=== PATIENT | male | born 1930 | race Caucasian/White ===

== ENCOUNTER 2018-03-29 06:09 | Inpatient (IN) | payer OTHER ==
--- NOTE | 2018-03-29 06:53 | ED.PDOC ---
General Stated Complaint: Patient states that he has noticed left leg swelling more that usual with redness and tingling that started last night. Feels like prior cellulitis. He was concerned so came to the ER. Already taking warfarin for intermitent Atrial fibrillation and CAD with prior stents. Time Seen by Physician: 06:51 Information Source: Patient, Family Exam Limitations: No limitations Nursing and Triage Documentation Reviewed and Agree: Yes Does patient meet sepsis criteria?: Yes If yes, has appropriate treatment been initiated?: Yes System Inflammatory Response Syndrome: Pulse >90 BPM, Resp >20/Minute <ARLEY MARROQUIN - Last Filed: 03/29/18 07:01> <OSMIN RABAGO - Last Filed: 03/29/18 07:40> ED Provider: Dr. OSMIN LOCKE-OLGA Chief Complaint: Extremity Swelling/Pain Primary Care Provider: SARIKA CANO Sepsis Protocol: For patient's 13 years and over: Temp is 96.8 and below OR 101 and greater Pulse >90 BPM Resp >20/minute Acutely Altered Mental Status Are patient's symptoms suggestive of a new infection, such as: -Pneumonia -Skin, Soft Tissue -Endocarditis -UTI -Bone, Joint Infection -Implantable Device -Acute Abdominal Infection -Wound Infection -Meningitis -Blood Stream Catheter Infection -Unknown Musculoskeletal Complaint Exam - Lower Extremity Complaint/Exam Location of Pain: Reports: Left Mechanism of Injury: Reports: No known trauma Symptoms Are: Still present Onset of Pain: Reports: Days (1) Initial Severity: Mild Current Severity: Mild Location: Reports: Diffuse Able to Bear Weight: Yes Associated Signs and Symptoms: Reports: Swelling Septic Arthritis Risk Factors: Reports: None Lower Extremity Findings: Present: Swelling, Erythema, Warmth, Tenderness (to palpation) Lyla's Sign Present: No Lower Extremities Picture: 1 - erythema and edema Differential Diagnoses: Other (cellulitis ) <ARLEY MARROQUIN - Last Filed: 03/29/18 07:01> Review of Systems - Review Of Systems Constitutional: Reports: No symptoms Eyes: Reports: No symptoms Ears, Nose, Mouth, Throat: Reports: No symptoms Respiratory: Reports: No symptoms Cardiac: Reports: No symptoms GI: Reports: No symptoms : Reports: No symptoms Musculoskeletal: Reports: Joint swelling Skin: Reports: Rash (Redness on the left ) Neurological: Reports: No symptoms Endocrine: Reports: No symptoms Hematologic/Lymphatic: Reports: No symptoms All Other Systems: Reviewed and Negative <ARLEY MARROQUIN - Last Filed: 03/29/18 07:01> Past Medical History - Past Medical History Previously Healthy: Yes Endocrine: Reports: Hypothyroid, Dyslipidemia Cardiovascular: Reports: AK, A-Fib (intermitent ) Respiratory: Reports: None Hematological: Reports: None Gastrointestinal: Reports: None Genitourinary: Reports: None Neuro/Psych: Reports: Parkinson's Musculoskeletal: Reports: Arthritis, Other (chronic lower ext edema ) Cancer: Reports: None - Surgical History General Surgical History: Reports: Stent - Family History Family History: Reports: Unknown - Social History Smoking Status: Former smoker Hx Substance Use: No Alcohol Screening: None - Immunizations Tetanus Shot up to Date: No (unknown) <ARLEY MARROQUIN - Last Filed: 03/29/18 07:01> Physical Exam - Physical Exam Appearance: Well-appearing Pain Distress: None Eyes: MYCHAL, EOMI Neck: Supple Respiratory: Airway patent, Breath sounds clear, Breath sounds equal, Respirations nonlabored Cardiovascular: RRR, Pulses normal, No rub, No murmur GI/: Soft, Nontender, No masses, Bowel sounds normal, No Organomegaly Musculoskeletal: Normal strength, ROM intact, No calf tenderness, Edema (Left > right 3 + on left, 2+ on the right ) Skin: Warm, Dry (redness noted on the left with slight warmth. ) Neurological: Sensation intact, Alert, Oriented Psychiatric: Affect appropriate, Mood appropriate <ARLEY MARROQUIN - Last Filed: 03/29/18 07:01> Physician Notification - Case Discussed Endorsed To/Discussed With: Dr Locke Time of Discussion: 07:01 <ARLEY MARROQUIN Last Filed: 03/29/18 07:01> - Case Discussed Physician Notified: dr cano Time of Notification: 07:40 <OSMIN RABAGO - Last Filed: 03/29/18 07:40> Critical Care Note - Critical Care Note Total Time (mins): 0 <OSMIN ARBAGO - Last Filed: 03/29/18 07:40> Course - Course Hematology/Chemistry: 03/29/18 06:55 03/29/18 06:55 <OSMIN RABAGO - Last Filed: 03/29/18 07:40> - Course Orders, Labs, Meds: Lab Review 03/29/18 03/29/18 03/29/18 06:55 06:55 06:55 WBC 10.69 H RBC 4.45 L Hgb 14.2 Hct 40.9 L MCV 91.9 MCH 31.9 H MCHC 34.7 RDW Coeff of Chidi 12.0 Plt Count 160 Immature Gran % (Auto) 0.3 Neut % (Auto) 92.3 Lymph % (Auto) 4.6 L [place] % (Auto) 2.7 Eos % (Auto) 0.0 Baso % (Auto) 0.1 Immature Gran # (Auto) 0.0 Neut # (Auto) 9.9 H Lymph # (Auto) 0.5 L [place] # (Auto) 0.3 L Eos # (Auto) 0.0 Baso # (Auto) 0.0 PT 30.3 H INR 3.13 Sodium 135.8 L Potassium 3.86 Chloride 102.9 Carbon Dioxide 27.4 Anion Gap 9.36 BUN 21.1 H Creatinine 0.84 Estimated GFR (MDRD) 86.00 BUN/Creatinine Ratio 25.11 Glucose 132.2 H Lactic Acid Calcium 8.73 Total Bilirubin 1.51 H AST 27.8 ALT 7.4 Alkaline Phosphatase 73.8 Total Protein 6.61 Albumin 3.40 L Globulin 3.21 Albumin/Globulin Ratio 1.05 03/29/18 06:55 WBC RBC Hgb Hct MCV MCH MCHC RDW Coeff of Chidi Plt Count Immature Gran % (Auto) Neut % (Auto) Lymph % (Auto) [place] % (Auto) Eos % (Auto) Baso % (Auto) Immature Gran # (Auto) Neut # (Auto) Lymph # (Auto) [place] # (Auto) Eos # (Auto) Baso # (Auto) PT INR Sodium Potassium Chloride Carbon Dioxide Anion Gap BUN Creatinine Estimated GFR (MDRD) BUN/Creatinine Ratio Glucose Lactic Acid 1.73 Calcium Total Bilirubin AST ALT Alkaline Phosphatase Total Protein Albumin Globulin Albumin/Globulin Ratio Orders Category Date Time Status ED IV/MEDIPORT/POWERPORT .ONCE EMERGENCY 03/29/18 06:50 Active BLOOD CULTURE (ED ONLY) Stat LAB 03/29/18 06:55 Received CBC W/ AUTO DIFF Stat LAB 03/29/18 06:55 Completed COMPREHENSIVE METABOLIC PANEL Stat LAB 03/29/18 06:55 Completed LACTIC ACID Stat LAB 03/29/18 06:55 Completed PROCALCITONIN Stat LAB 03/29/18 06:55 Received PT WITH INR Stat LAB 03/29/18 06:55 Completed 0.9 % Sodium Chloride [Saline Flush] MEDS 03/29/18 06:50 Active 1 syr IVF PRN PRN Medications Generic Name Dose Route Start Last Admin Trade Name Freq PRN Reason Stop Dose Admin Sodium Chloride 1 syr 03/29/18 06:50 Saline Flush IVF PRN PRN To flush IV Vital Signs: Temp Pulse Resp BP Pulse Ox 03/29/18 06:11 99.6 F 92 H 24 100/63 91 L Departure <ARLEY MARROQUIN - Last Filed: 03/29/18 07:01> - Departure Time of Disposition: 07:40 Pt referred to PMD for follow-up: Yes IPMP verified?: No Disposition Discussed With: Patient, Family <OSMIN RABAGO - Last Filed: 03/29/18 07:40> - Departure Disposition: ADMITTED INPATIENT Discharge Problem: Cellulitis of left lower extremity Instructions: Cellulitis (ED) Condition: Good Allergies/Adverse Reactions: Allergies No Known Allergies Allergy (Unverified 03/29/18 06:37) Home Medications: Ambulatory Orders Carbidopa/Levodopa [Carbidopa-Levodopa 25-100 Tab] 3 tab PO BID 03/29/18 Furosemide [Lasix] 40 mg PO DAILY 03/29/18 Levothyroxine Sodium [Synthroid] 100 mcg PO QDAC 03/29/18 Metoprolol Tartrate 25 mg PO BID 03/29/18 Simvastatin 10 mg PO DAILY 03/29/18 Vit C/E/Zn/Coppr/Lutein/Zeaxan [Preservision Areds 2 Softgel] 1 cap PO BID 03/29 Warfarin Sodium 2 mg PO WEEKLY 03/29/18 Warfarin Sodium 5 mg PO DIRECTED 03/29/18
[2018-03-29] MEDS ORDERED: ANCEF ONE (08:11)
[2018-03-29] MEDS: ANCEF 1 GM in SODIUM CHLORIDE 100 ML IV SCH ×3 (08:16→20:07)
[2018-03-29] MEDS: SODIUM CHLORIDE 1,000 ML IV SCH (08:17)
[2018-03-29 10:05] VITALS: BMI 27.5
[2018-03-29] MEDS ORDERED: NITROSTAT SL PRN (10:06)
[2018-03-29] MEDS ORDERED: VISTARIL INJ IM PRN (10:06)
[2018-03-29] MEDS ORDERED: TYLENOL PO PRN (10:06)
[2018-03-29] MEDS ORDERED: ATROPINE SULFATE PFS IVP PRN (10:06)
[2018-03-29] MEDS ORDERED: MORPHINE 4 MG/ML VIAL IVP PRN (10:06)
--- NOTE | 2018-03-29 11:32 | DI ---
Exam: Single view chest x-ray. Date: 03/29/2018. Comparison: None. HISTORY: Lower extremity swelling and atrial fibrillation. FINDINGS: No acute osseous abnormalities are observed. The lungs are clear. Cardiac silhouette and pulmonary vasculature are normal. ASVD is present. Impression: No acute intrathoracic findings. ASVD.
[2018-03-29] MEDS: DIFLUCAN PO SCH (12:15)
[2018-03-29] MEDS: LOTRISONE 45 GM TP SCH ×3 (12:16→20:08)
[2018-03-29] MEDS: LASIX TAB PO SCH (12:17)
[2018-03-29] MEDS: LOPRESSOR PO SCH ×2 (12:18→20:07)
[2018-03-29] MEDS: SINEMET 25-100 PO SCH ×2 (12:18→20:07)
[2018-03-29] MEDS: ZOCOR PO SCH (12:19)
[2018-03-29] MEDS: VANCOMYCIN 1 GM in SODIUM CHLORIDE 250 ML IV SCH ×2 (12:21→21:14)
[2018-03-29] MEDS ORDERED: NYSTATIN ORAL SUSP PO STA (15:51)
[2018-03-29] MEDS ORDERED: COUMADIN PO SCH (17:00)
[2018-03-30] MEDS: SYNTHROID PO SCH (05:32)
[2018-03-30] MEDS: ANCEF 1 GM in SODIUM CHLORIDE 100 ML IV SCH ×3 (05:32→21:01)
[2018-03-30] MEDS: LASIX TAB PO SCH (05:33)
--- NOTE | 2018-03-30 09:18 | PCM.PROG ---
Attending Provider: ATTENDING PROVIDER: Dr. SARIKA ANN This patient is seen with Kathi Reardon, Nurse Practitioner. DATE OF SERVICE: 03/30/18 SUBJECTIVE: This 87 year old WHITE/ M was hospitalized 03/29/18. The patient has significant leg erythema and swelling of both lower extremities. No fever and is eating well. REVIEW OF SYSTEMS: CONSTITUTIONAL: No night sweats. No fatigue, malaise, lethargy. No fever or chills. HEENT: Eyes: No visual changes. No eye pain. No eye discharge. ENT: No runny nose. No epistaxis. No sinus pain. No odynophagia. No congestion. RESPIRATORY: No cough, no congestion. No hemoptysis. No shortness of breath. CARDIOVASCULAR: Leg edema left lower extremity with redness. No angina symptoms. No CHF symptoms. No atypical chest pain for CAD. No palpitations. No orthopnea.. GASTROINTESTINAL: No abdominal pain. No nausea or vomiting. No diarrhea or constipation. No hematemesis. No hematochezia. GENITOURINARY: No urgency. No frequency. No dysuria. No hematuria. No obstructive symptoms. No discharge. No pain. No significant abnormal bleeding. MUSCULOSKELETAL: No musculoskeletal pain; no joint swelling. NEUROLOGICAL: Awake, alert, oriented to time, place and person. No headache. No neck pain. No syncope. No seizures. No dizziness. PSYCHIATRIC: Not anxious. No depression. No suicidal thoughts. No homicidal thoughts. SKIN: No rash. No lesions. No wounds. ENDOCRINE: No unexplained weight loss. No weight gain. HEMATOLOGIC/LYMPHATIC: No anemia. No purpura. No petechiae. No prolonged or excessive bleeding. No palpable lymph nodes. PHYSICAL EXAMINATION: GENERAL: The patient is awake, alert and oriented, sitting in chair in no distress. VITAL SIGNS: Temperature 98.7 F, Pulse 74, Respiratory Rate 16, BP 112/66, Pulse Ox 97% HEENT: Head normocephalic, atraumatic. Eyes: Extraocular muscles are intact. Pupils are equal, round and reactive to light and accommodation. Ears: No lesions. Nose appeared normal. Throat: No exudate or erythema. NECK: Supple. No JVD, no carotid bruit. No lymphadenopathy or thyromegaly. LUNGS: Diminished breath sounds. Clear to auscultation. Percussion note normal. Chest symmetrical. HEART: Irregular heart rate. S1, S2, no S3. No murmurs. No cyanosis or clubbing. No ascites. Pulses: Dorsalis pedis and posterior tibial pulses +1 to +2 both sides. ABDOMEN: Soft. Non-tender. Bowel sounds active. No CVA tenderness. No mass felt. EXTREMITIES: +2 edema bilateral lower extremities red from toes to knee with tenderness no open areas. Full range of motion of all extremities, equal. NEUROLOGIC: No focal deficit. Cranial nerves II through XII are grossly intact. No headache, no double vision or headache. SKIN: Not dry. Intact. Turgor-normal. LYMPHATIC: No palpable lymph nodes/no lymphedema. MUSCULOSKELETAL: Normal joints with no swelling. Muscle tone is normal. LAB REVIEW: 03/30/18 04:20 03/30/18 04:20 03/30/18 04:20: Sodium 134.2 L, Potassium 4.08, Chloride 104.0, Carbon Dioxide 28.3, Anion Gap 5.98, BUN 18.0, Creatinine 0.81, Estimated GFR (MDRD) 90.00, BUN /Creatinine Ratio 22.22, Glucose 100.1, Calcium 8.15 L, Total Bilirubin 1.84 H, AST 19.7, ALT 5.3, Alkaline Phosphatase 58.8, Total Protein 6.09 L, Albumin 2.88 L, Globulin 3.21, Albumin/Globulin Ratio 0.89 03/30/18 04:20: PT 29.6 H, INR 3.06 03/30/18 04:20: WBC 9.22, RBC 4.06 L, Hgb 13.0 L, Hct 37.8 L, MCV 93.1, MCH 32.0 H, MCHC 34.4, RDW Coeff of Chidi 12.2, Plt Count 124 L, Immature Gran % (Auto ) 0.2, Neut % (Auto) 79.5, Lymph % (Auto) 14.1, [place] % (Auto) 5.7, Eos % (Auto) 0.4, Baso % (Auto) 0.1, Immature Gran # (Auto) 0.0, Neut # (Auto) 7.3 H, Lymph # (Auto) 1.3, [place] # (Auto) 0.5, Eos # (Auto) 0.0, Baso # (Auto) 0.0 03/29/18 12:15: Urine Color Dark, Urine Clarity Clear, Urine pH 6.5, Ur Specific [place] 1.020, Urine Protein Trace, Urine Glucose (UA) Negative, Urine Ketones Trace, Urine Blood Negative, Urine Nitrite Negative, Urine Bilirubin Negative, Urine Urobilinogen 0.2, Ur Leukocyte Esterase Negative, Ur Squamous Epith Cells Not present, Urine Mucus 3+ ASSESSMENT: . 1. Left lower extremity cellulitis 2. Chronic bilateral lower extremity edema 3. Atrial fibrillation on Coumadin PLAN: 1. Left lower extremity venous scan 2. Hold Coumadin 3. Elevate legs Plan and coordination of the patient's care discussed in the presence of Patent Chemist and nurse. CONDITION: Stable SCRIBED BY: NINA RIVERA Fireman Helper scribed while in presence of service performed by Dr. Ann/Kathi Reardon APRN on 03/30/18 ([id number])
[2018-03-30] MEDS: VANCOMYCIN 1 GM in SODIUM CHLORIDE 250 ML IV SCH ×2 (09:58→21:00)
[2018-03-30] MEDS: ZOCOR PO SCH (09:59)
[2018-03-30] MEDS: SINEMET 25-100 PO SCH ×2 (09:59→21:03)
[2018-03-30] MEDS: DIFLUCAN PO SCH (09:59)
[2018-03-30] MEDS: LOPRESSOR PO SCH ×2 (09:59→21:02)
[2018-03-30] MEDS: LOTRISONE 45 GM TP SCH ×3 (10:00→21:00)
--- NOTE | 2018-03-30 11:03 | US ---
EXAM: Left lower extremity venous Doppler History: Left lower extremity pain and swelling. Technique: Multiple sonographic images through the left lower extremity were obtained. Color duplex Doppler was used to interrogate vascular flow. Findings: The left common femoral, greater saphenous, profunda, superficial femoral, popliteal, cash roseline, posterior tibial and anterior tibial veins demonstrate spontaneous flow with normal compression normal augmentation. Impression: No sonographic evidence for deep venous thrombosis.
--- NOTE | 2018-03-30 15:40 | RS.OTINEVL ---
Subjective - Patient information Date of Evaluation: 03/30/18 Date of Arrival on Unit: 03/30/18 Admitted From:: Emergency Dept Usual Living Arrangement: With Spouse Living Arrangement Comments: Pt lives at [place] with his . Pt usually does not use an AD for ambulation, however patient could benefit from a RW to improve balance and safety. Medical History Comments:: Parkinson's, LLE cellulitis, sensory deficits, Irreg. HB, Coronary Stent 1985, 1987, OA, former smoker, B TKA, Cardiac stents, CAD, AFib Surgical History: Knee Replacement Surgical History Comments:: B TKA, 2 Cardiac stents, Subjective Information/ Patient Comments:: "I walk at home without anything." "My uses a walker." "It feels like pins are poking in it." - Level of function Prior to this admission, the patient could do the following:: Independent Selfcare, Independent ADL's, Independent Ambulation Abilities prior to this admission: Pt would sit on a shower chair for his shower. Current Equipment Used at Home: cane Pain Assessment - Pain Pain Score: 0 Interventions - Objective Patient Orientation: Person, Place Current Interventions: IV's, Telemetry Observation: Pt has edema, redness, and heat in the LLE. Interventions - ROM Right Upper Extremity AROM: WFL's Left Upper Extremity AROM: WFL's - Strength Right Upper Extremity Strength: Mild Weakness Left Upper Extremity Strength: Mild Weakness - Sensation Right Upper Extremity Sensation: Intact/Normal Left Upper Extremity Sensation: Intact/Normal Balance - Sitting Balance Static Sitting Balance: Good Dynamic Sitting Balance: Fair - Standing Balance Static Standing Balance: Poor Dynamic Standing Balance: Poor ADL Skills - Self Feeding Self Feeding: Independent - Grooming Grooming: Supervision - Bathing Bathing UE: Supervision Bathing LE: Supervision - Dressing Dressing UE: Supervision Dressing LE: Min Assist - Toilet Management Toileting Management: Supervision Functional Mobility - Bed Mobility Rolling R/L: Independent Scooting: Supervision Supine to Sit: Supervision Sit to Supine: Supervision - Transfers Sit to Stand: CGA Stand to Sit: [facility] Stand Pivot Transfers: CGA - Ambulation Weight Bearing Status: FWB Assistive Device Used: Rolling Walker Assistance needed with Ambulation: CGA, 1 person assist - Safety Awareness Safety Awareness: Good MANJU INDEX SCORE: . Additional Treatment Performed - Time with patient Length of Evaluation: 24 Total treatment time: 24 Activities Patient Interests:: Watching Television, Visiting/Socializing Patient Education Patient Education: Education of diagnosis, Home Exercise Program Teaching Recipient: Patient Teaching Methods: Discussion Assessment Problem List:: Decreased level of function, Requires training/education, Decreased safety/Risk of falls, Weakness Rehab Potential: Good Further Therapy Indicated?: Yes Evaluation Complexity: HISTORY: Medium, EXAM OF BODY SYSTEMS: Medium, CLINICAL DECISION MAKING: Medium Short Term Goals - Goals GOAL 1: Pt to increase activity tolerance to 15 minutes with 1 rest. Goal to be met by: 04/02/18 GOAL 2: Pt to increase independence of BLE dressing to CGA. Goal to be met by: 04/02/18 GOAL 3: Pt to increase independence of sink level ADLs to CGA. Goal to be met by: 04/02/18 Jail Goals GOAL 1: Pt to increase activity tolerance to 20 minutes with 1 rest. Goal to be met by: 04/06/18 GOAL 2: Pt to increase independence of BLE dressing to CGA. Goal to be met by: 04/06/18 GOAL 3: Pt to increase independence of sink level ADLs to Mod-I. Goal to be met by: 04/06/18 Plan Plan of Care: Therapeutic EX, Neuromuscular Re-Educ, Therapeutic Activity, Self- Care/Home Management Modalities: Cold Pack/Cryotherapy Frequency of Treatment: 1-2 X day, as tolerated Anticipated Discharge Destination: Assisted Living Facility Treatment Diagnosis (ICD 10 Codes): M62.81 Muscle Weakness, Z74.0 Reduced mobility, Z74.1 Reduced need for assistance with personal care. Has the Physician been added for Co-signature?: Yes
[2018-03-30] MEDS: SODIUM CHLORIDE 1,000 ML IV SCH (19:48)
[2018-03-31] MEDS: ANCEF 1 GM in SODIUM CHLORIDE 100 ML IV SCH ×3 (05:39→20:50)
[2018-03-31] MEDS: LASIX TAB PO SCH (05:39)
[2018-03-31] MEDS: SYNTHROID PO SCH (06:23)
--- NOTE | 2018-03-31 08:35 | RS.PTINEVL ---
Subjective - Patient information Date of Evaluation: 03/30/18 Date of Arrival on Unit: 03/30/18 Admitted From:: Emergency Dept Diagnosis: cellulitis LLE Usual Living Arrangement: With Spouse Living Arrangement Comments: Pt lives at [place] with his . pt amb independently without AD and independent with ADL's Home Environment: Apartment, Level/No stairs Medical History: Arthritis Medical History Comments:: parkinson's disease, CT, Afib, hypothyroidism Surgical History: Knee Replacement Surgical History Comments:: B TKA Medications: see chart Subjective Information/ Patient Comments:: pt states that he walks on his own at [place]. - Level of function Prior to this admission, the patient could do the following:: Independent Selfcare, Independent ADL's, Independent Ambulation Current Level of Function: Partially Dependent Current Equipment Used at Home: cane Interventions - Objective Patient Orientation: Person, Place Current Interventions: IV's, Telemetry Observation: pt with 2+ pitting edema and erythema LLE due to cellulitis Range of Motion - ROM Right Upper Extremity AROM: WFL's Left Upper Extremity AROM: WFL's Right Lower Extremity AROM: WFL's Left Lower Extremity AROM: WFL's Muscle Strength - Muscle Strength Right Upper Extremity Strength: Mild Weakness (grossly 4-/5) Left Upper Extremity Strength: Mild Weakness (grossly 4-/5) Right Lower Extremity Strength: Mild Weakness (hip flex 3+/5, knee flex/ext 4-/5 , ankle Df/PF 4-/5) Left Lower Extremity Strength: Mild Weakness (hip flex 3+/5, knee flex/ext 4-/5 , ankle Df/PF 4-/5) Sensation - Sensation Right Upper Extremity Sensation: Intact/Normal Left Upper Extremity Sensation: Intact/Normal Right Lower Extremity Sensation: Intact/Normal Left Lower Extremity Sensation: Intact/Normal Palpation Palpation Findings: None/Normal Balance - Sitting Balance and Reactions Static Sitting Balance: Fair Dynamic Sitting Balance: Fair Sitting Equilibrium Reactions: Delayed Left, Delayed Right Sitting Protective Reactions: Delayed Left, Delayed Right - Standing Balance and Reactions Static Standing Balance: Poor Dynamic Standing Balance: Poor Standing Equilibrium Reactions: Delayed Left, Delayed Right Standing Protective Reactions: Delayed Left, Delayed Right Functional Mobility - Bed Mobility Rolling R/L: CGA Scooting: CGA Supine to Sit: Min Assist Sit to Supine: Min Assist - Transfers Sit to Stand: CGA Stand to Sit: CGA - Safety Awareness Safety Awareness: Fair MANJU INDEX SCORE: n/a Ambulation - Ambulation Assistive Device Used: Rolling Walker Orthotic/Prosthetic Device: No Distance: 100ft Assistance needed with Ambulation: CGA, 1 person assist Gait Deviations: Narrow Based gait, Forward posture, Short stride, Deviates from path Ambulation Comments: pt amb with decreased ASHLEY with occasional scissoring, flexed posture, decreased step length Factors Affecting Ambulation: Decreased Balance, Breathing/O2 Saturation, Weakness, Decreased Safety, Limited Endurance Treatment time - Time with patient Length of Evaluation: 23 Total treatment time: 26 Patient Education - Education Patient Education: Activity Modification, Education of Plan of Care Teaching Recipient: Patient Teaching Methods: Discussion Comments: discussion regarding POC as well as use of rwx at the proper height ( pt was using 's rwx that was too short for him) Assessment - Assessment Problem List:: Decreased level of function, Requires training/education, Decreased safety/Risk of falls, Weakness Rehab Potential: Good Further Therapy Indicated?: Yes Candidate for Swing Bed for Therapy Services?: pt may be a candidate for swing bed therapy due to PLOF and plan to return to independent living facility. Evaluation Complexity: HISTORY: Medium (afib, CAD, parkinson's, OA), EXAM OF BODY SYSTEMS: Medium (posture, strength, balance, gait ), CLINICAL PRESENTATION : Medium, CLINICAL DECISION MAKING: Medium Short Term Goals GOAL #1: pt demonstrate independence with rolling and scooting up in bed. Goal to be met by: 04/01/18 GOAL #2: pt transfer sup to/from sit to/from stand CGA Goal to be met by: 04/01/18 GOAL #3: pt amb 125ft with rwx with improved ASHLEY, step length, CGA Goal to be met by: 04/01/18 GOAL #4: Improved strength BLE 4- to 4/5 Goal to be met by: 04/01/18 Snf Goals GOAL #1: pt transfer sup to/from sit to/from stand SBA to Independently Goal to be met by: 04/04/18 GOAL #2: pt amb with rwx functional household distances with SBA with no LOB Goal to be met by: 04/04/18 GOAL #3: pt with improved dyn stand balance to good- Goal to be met by: 04/04/18 Plan Plan of Care: Therapeutic EX, Therapeutic Activity Other:: gait training Frequency of Treatment: 1-2 X day, as tolerated Duration of Treatment: 5 days Anticipated Discharge Destination: Home Treatment Diagnosis (ICD 10 Codes): R26. 2 difficulty walking. M62.81 general weakness. R 26.81 balance impaired. parkinson's disease Has the Physician been added for Co-signature?: Yes
[2018-03-31] MEDS: LOPRESSOR PO SCH ×2 (09:16→20:50)
[2018-03-31] MEDS: FLOMAX PO SCH (09:16)
[2018-03-31] MEDS: ZOCOR PO SCH (09:17)
[2018-03-31] MEDS: SINEMET 25-100 PO SCH ×2 (09:17→20:51)
[2018-03-31] MEDS: DIFLUCAN PO SCH (09:17)
[2018-03-31] MEDS: LOTRISONE 45 GM TP SCH ×3 (09:17→20:50)
[2018-03-31] MEDS: VANCOMYCIN 1 GM in SODIUM CHLORIDE 250 ML IV SCH ×2 (09:17→22:18)
--- NOTE | 2018-03-31 10:37 | PCM.PROG ---
Attending Provider: ATTENDING PROVIDER: Dr. SARIKA ANN This patient is seen with Kathi Reardon, Nurse Practitioner. DATE OF SERVICE: 03/31/18 SUBJECTIVE: This 87 year old WHITE/ M was hospitalized 03/29/18. The patient is sitting in chair, resting. Redness slightly improved. He has been urinating frequently every 15 minutes small amounts, likely due to prostate enlargement and age. REVIEW OF SYSTEMS: CONSTITUTIONAL: No night sweats. No fatigue, malaise, lethargy. No fever or chills. HEENT: Eyes: No visual changes. No eye pain. No eye discharge. ENT: No runny nose. No epistaxis. No sinus pain. No odynophagia. No congestion. RESPIRATORY: No cough, no congestion. No hemoptysis. No shortness of breath. CARDIOVASCULAR: No angina symptoms. No CHF symptoms. No atypical chest pain for CAD. No palpitations. No PND, no orthopnea. GASTROINTESTINAL: No abdominal pain. No nausea or vomiting. No diarrhea or constipation. No hematemesis. No hematochezia. GENITOURINARY: Frequent urination. No dysuria. No hematuria. No obstructive symptoms. No discharge. No pain. No significant abnormal bleeding. MUSCULOSKELETAL: No musculoskeletal pain; no joint swelling. NEUROLOGICAL: Awake, alert, oriented to time, place and person. No headache. No neck pain. No syncope. No seizures. No dizziness. PSYCHIATRIC: Not anxious. No depression. No suicidal thoughts. No homicidal thoughts. SKIN: Positive for redness left lower extremity, bilateral leg edema. ENDOCRINE: No unexplained weight loss. No weight gain. HEMATOLOGIC/LYMPHATIC: No anemia. No purpura. No petechiae. No prolonged or excessive bleeding. No palpable lymph nodes. PHYSICAL EXAMINATION: GENERAL: The patient is awake, alert and oriented, sitting in chair in no distress. VITAL SIGNS: Temperature 98.7 F, Pulse 73, Respiratory Rate 20, BP 130/78, Pulse Ox 96% HEENT: Head normocephalic, atraumatic. Eyes: Extraocular muscles are intact. Pupils are equal, round and reactive to light and accommodation. Ears: No lesions. Nose appeared normal. Throat: No exudate or erythema. NECK: Supple. No JVD, no carotid bruit. No lymphadenopathy or thyromegaly. LUNGS: Diminished breath sounds. Clear to auscultation. Percussion note normal. Chest symmetrical. HEART: S1, S2, no S3. No murmurs. No cyanosis or clubbing. No ascites. Pulses: Dorsalis pedis and posterior tibial pulses +1 to +2 both sides. ABDOMEN: Soft. Non-tender. Bowel sounds active. No CVA tenderness. No mass felt. EXTREMITIES: Trace bilateral lower extremity edema. Full range of motion of all extremities, equal. NEUROLOGIC: No focal deficit. Cranial nerves II through XII are grossly intact. No headache, no double vision or headache. SKIN: Positive for redness, improving, left lower extremity. Warm and dry. Intact. Turgor-normal. LYMPHATIC: No palpable lymph nodes/no lymphedema. MUSCULOSKELETAL: Normal joints with no swelling. Muscle tone is normal. LAB REVIEW: 03/31/18 04:10 03/31/18 04:10 03/31/18 04:10: Sodium 136.2 L, Potassium 3.83, Chloride 105.4, Carbon Dioxide 28.0, Anion Gap 6.63, BUN 11.9, Creatinine 0.74, Estimated GFR (MDRD) 100.00, BUN/Creatinine Ratio 16.08, Glucose 91.2, Calcium 8.53, Total Bilirubin 1.49 H, AST 26.7, ALT 7.4, Alkaline Phosphatase 68.5, Total Protein 6.28 L, Albumin 3.02 L, Globulin 3.26, Albumin/Globulin Ratio 0.92 03/31/18 04:10: PT 20.2 H D, INR 2.06 03/31/18 04:10: WBC 7.37, RBC 4.09 L, Hgb 13.1 L, Hct 38.1 L, MCV 93.2, MCH 32.0 H, MCHC 34.4, RDW Coeff of Chidi 12.2, Plt Count 134 L, Immature Gran % (Auto ) 0.3, Neut % (Auto) 77.4, Lymph % (Auto) 15.3, [place] % (Auto) 5.3, Eos % (Auto) 1.6, Baso % (Auto) 0.1, Immature Gran # (Auto) 0.0, Neut # (Auto) 5.7, Lymph # ( Auto) 1.1, [place] # (Auto) 0.4, Eos # (Auto) 0.1, Baso # (Auto) 0.0 ASSESSMENT: 1. ACUTE CELLULITIS LEFT LOWER EXTREMITY 2. BILATERAL CHRONIC LEG EDEMA 3. BPH 4. HYPERTENSION 5. 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 D/C IV fluids 2. Elevate legs 3. Start Flomax 0.4 mg daily 4. Resume Coumadin today Plan and coordination of the patient's care discussed in the presence of Acoustical Logging Engineer and nurse. CONDITION: Stable SCRIBED BY: NINA RIVERA Smearer scribed while in presence of service performed by Dr. Ann/Kathi Reardon APRN on 03/31/18 ([id number])
--- NOTE | 2018-03-31 11:47 | HP ---
DATE OF SERVICE: 03/30/18 HISTORY OF PRESENT ILLNESS: This is an 87-year-old white male who presents to the emergency room with left lower extremity redness and swelling. He has a history of left lower extremity cellulitis. PAST MEDICAL HISTORY: Atrial fibrillation Coronary artery disease with stent LV dysfunction Hyperlipidemia Parkinson's disease History of leg edema Hypothyroidism Hypertension PAST SURGICAL HISTORY: Coronary artery disease with stent times 6 in 1995, 1998 and 2007 Bilateral knee 10 years ago Partial thyroidectomy Appendectomy Tonsillectomy REVIEW OF SYSTEMS: CONSTITUTIONAL: No night sweats. No fatigue, malaise, lethargy. No fever or chills. HEENT: Eyes: No visual changes. No eye pain. No eye discharge. ENT: No runny nose. No epistaxis. No sinus pain. No sore throat. No odynophagia. No ear pain. No congestion. RESPIRATORY: No cough, no congestion. No hemoptysis. No shortness of breath. CARDIOVASCULAR: No angina symptoms. No CHF symptoms. No atypical chest pain for CAD. No palpitations. No PND. No orthopnea. GASTROINTESTINAL: No abdominal pain. No nausea or vomiting. No diarrhea or constipation. No hematemesis. No hematochezia. GENITOURINARY: No urgency. No frequency. No dysuria. No hematuria. No obstructive symptoms. No discharge. No pain. No significant abnormal bleeding. MUSCULOSKELETAL: No musculoskeletal pain. No joint swelling. No arthritis. NEUROLOGICAL: No headache. No neck pain. No syncope. No seizures. No dizziness. PSYCHIATRIC: Not anxious. No depression. No suicidal thoughts. No homicidal thoughts. SKIN: Positive for leg edema and redness left lower extremity. ENDOCRINE: No unexplained weight loss. No weight gain. HEMATOLOGIC/LYMPHATIC: No anemia. No purpura. No petechiae. No prolonged or excessive bleeding. No palpable lymph nodes. PERSONAL/FAMILY/SOCIAL HISTORY: Both mother and father are . Social history: He is , lives at assisted living with his . He has four children and is retired. No alcohol or ilicit drug use. Nonsmoker. MEDICATIONS: (HOME) Warfarin 5 mg p.o. as directed Vitamin C/E/Zin/Copper/Lutein/Zeaxan (Preservision Areds 2 softgel) one each capsule Carbidopa/Levodo ALLERGIES: NKDA PHYSICAL EXAMINATION: VITAL SIGNS: Temperature 98.7, heart rate 74, respiratory rate 16, BP 112/66, pulse ox 97% on room air. HEENT: Head normocephalic, atraumatic. Eyes: Extraocular muscles are intact. Pupils are equal, round and reactive to light and accommodation. Ears: No lesions. Nose appeared normal. Throat: No exudate or erythema. NECK: Supple. No JVD, no carotid bruit. No lymphadenopathy or thyromegaly. LUNGS: Diminished breath sounds. Clear to auscultation. Percussion note normal. Chest symmetrical. HEART: Irregular heart rate. S1, S2, no S3. No murmurs. No cyanosis or clubbing. No ascites. Pulses: Dorsalis pedis and posterior tibial pulses +1 to +2 bilaterally. ABDOMEN: Soft. Nontender. Bowel sounds active. No CVA tenderness. No mass felt. EXTREMITIES: +2 bilateral leg edema. Left lower extremity red, tender, erythema ascending from toes to the knee on left lower extremity. Full range of motion of all extremities, equal. NEUROLOGIC: No focal deficit. Cranial nerves II through XII are grossly intact. No headache, no double vision or headache. SKIN: Not dry. Intact. Turgor - normal. LYMPHATIC: No palpable lymph nodes/no lymphedema. MUSCULOSKELETAL: Normal joints with no swelling. Muscle tone is normal. LABS: White count 9.22, hemoglobin 13, hematocrit 37.8, platelets 124. Sodium 134, potassium 4, BUN 18, creatinine 0.81, PT 29, INR 3.06. ASSESSMENT: 1. LEFT LOWER EXTREMITY CELLULITIS 2. CHRONIC LEG EDEMA 3. ATRIAL FIBRILLATION ON COUMADIN THERAPY 4. HYPERTENSION 5. DYSLIPIDEMIA PLAN: 1. CBC, CMP daily. 2. We will admit. 3. PT/INR daily. 4. Chest x-ray. 5. Continue all home medications. 6. Start on NS IV at 40 cc/hr. 7. Vancomycin 1 gm IV q.12hr. 8. Ancef 1 gm IV q.8hr. 9. Keep legs elevated. 10. Will do venous scan of the left lower extremity. 11. Will hold his Coumadin today as his INR is 3.06. 12. Regular low sodium diet. 13. Will monitor closely. TIME SPENT: More than 70 minutes. [facility] CENTERHannah
[2018-03-31] MEDS: COUMADIN PO SCH (17:26)
[2018-04-01] MEDS: ANCEF 1 GM in SODIUM CHLORIDE 100 ML IV SCH ×3 (04:48→20:31)
[2018-04-01] MEDS: SYNTHROID PO SCH (05:31)
[2018-04-01] MEDS: LASIX TAB PO SCH (05:31)
[2018-04-01] MEDS: DIFLUCAN PO SCH (09:20)
[2018-04-01] MEDS: VANCOMYCIN 1 GM in SODIUM CHLORIDE 250 ML IV SCH ×2 (09:41→23:02)
[2018-04-01] MEDS: NYSTOP POWDER TP SCH ×2 (09:42→20:32)
[2018-04-01] MEDS: LOTRISONE 45 GM TP SCH ×3 (09:42→20:33)
[2018-04-01] MEDS: LOPRESSOR PO SCH ×2 (09:42→20:31)
[2018-04-01] MEDS: ZOCOR PO SCH (09:42)
[2018-04-01] MEDS: SINEMET 25-100 PO SCH ×2 (09:42→20:31)
[2018-04-01] MEDS: FLOMAX PO SCH (09:42)
--- NOTE | 2018-04-01 10:09 | DI ---
EXAM: Two views of the left tibia and fibula. History: Left lower extremity pain and redness. Findings: Osteopenia. No acute fracture or dislocation. Atherosclerotic vascular calcifications. Grossly intact hardware within the knee. Diffuse subcutaneous edema. Impression: 1. No acute osseous abnormality. 2. Diffuse subcutaneous edema/cellulitis. 3. Atherosclerotic vascular disease
--- NOTE | 2018-04-01 10:14 | DI ---
EXAM: Three views of the left foot. History: Left foot pain and swelling with redness. Findings: Osteopenia. Diffuse subcutaneous edema. Atherosclerotic vascular calcifications. No acu te fracture or dislocation. Mild polyarticular joint space narrowing. No radiographic evidence for osteomyelitis. Impression: 1. No radiographic evidence for osteomyelitis. 2. Diffuse subcutaneous edema/cellulitis. 3. Osteopenia. 4. Atherosclerotic vascular disease
--- NOTE | 2018-04-01 10:53 | PCM.PROG ---
Attending Provider: ATTENDING PROVIDER: Dr. SARIKA ANN This patient is seen with Kathi Reardon, Nurse Practitioner. DATE OF SERVICE: 04/01/18 SUBJECTIVE: This 87 year old WHITE/ M was hospitalized 03/29/18. The patient is lying in bed, states he is having increased pain left lower extremity. Swelling is unchanged. Erythema slightly improved. Describes pain more in the foot area. Venous scan on Friday was negative. REVIEW OF SYSTEMS: CONSTITUTIONAL: No night sweats. No fatigue, malaise, lethargy. No fever or chills. HEENT: Eyes: No visual changes. No eye pain. No eye discharge. ENT: No runny nose. No epistaxis. No sinus pain. No odynophagia. No congestion. RESPIRATORY: No cough, no congestion. No hemoptysis. No shortness of breath. CARDIOVASCULAR: No angina symptoms. No CHF symptoms. No atypical chest pain for CAD. No palpitations. No orthopnea.. GASTROINTESTINAL: No abdominal pain. No nausea or vomiting. No diarrhea or constipation. No hematemesis. No hematochezia. GENITOURINARY: No urgency. No frequency. No dysuria. No hematuria. No obstructive symptoms. No discharge. No pain. No significant abnormal bleeding. MUSCULOSKELETAL: No musculoskeletal pain; no joint swelling. NEUROLOGICAL: Awake, alert, oriented to time, place and person. No headache. No neck pain. No syncope. No seizures. No dizziness. PSYCHIATRIC: Not anxious. No depression. No suicidal thoughts. No homicidal thoughts. SKIN: Left leg edema and redness. ENDOCRINE: No unexplained weight loss. No weight gain. HEMATOLOGIC/LYMPHATIC: No anemia. No purpura. No petechiae. No prolonged or excessive bleeding. No palpable lymph nodes. PHYSICAL EXAMINATION: GENERAL: The patient is awake, alert and oriented, lying in bed in no distress. VITAL SIGNS: Temperature 97.6 F, Pulse 70, Respiratory Rate 16, BP 141/77, Pulse Ox 96% HEENT: Head normocephalic, atraumatic. Eyes: Extraocular muscles are intact. Pupils are equal, round and reactive to light and accommodation. Ears: No lesions. Nose appeared normal. Throat: No exudate or erythema. NECK: Supple. No JVD, no carotid bruit. No lymphadenopathy or thyromegaly. LUNGS: Clear to auscultation. Percussion note normal. Chest symmetrical. HEART: Regular heart rate. S1, S2, no S3. No murmurs. No cyanosis or clubbing. No ascites. Pulses: Dorsalis pedis and posterior tibial pulses +1 to +2 both sides. ABDOMEN: Soft. Non-tender. Bowel sounds active. No CVA tenderness. No mass felt. EXTREMITIES: Trace edema right lower extremity. Left lower extremity +1 edema with erythema from ankle to knee. Full range of motion of all extremities, equal. NEUROLOGIC: No focal deficit. Cranial nerves II through XII are grossly intact. No headache, no double vision or headache. SKIN: Not dry. Intact. Turgor-normal. LYMPHATIC: No palpable lymph nodes/no lymphedema. MUSCULOSKELETAL: Normal joints with no swelling. Muscle tone is normal. LAB REVIEW: 04/01/18 04:15 04/01/18 04:15 04/01/18 04:15: Sodium 137.7, Potassium 3.91, Chloride 105.6, Carbon Dioxide 29.6, Anion Gap 6.41, BUN 11.8, Creatinine 0.75, Estimated GFR (MDRD) 98.00, BUN /Creatinine Ratio 15.73, Glucose 92.3, Calcium 8.62, Total Bilirubin 1.18, AST 23.4, ALT 5.0, Alkaline Phosphatase 65.9, Total Protein 6.27 L, Albumin 3.11 L, Globulin 3.16, Albumin/Globulin Ratio 0.98 04/01/18 04:15: PT 15.5 H, INR 1.57 04/01/18 04:15: WBC 6.25, RBC 4.03 L, Hgb 12.9 L, Hct 37.5 L, MCV 93.1, MCH 32.0 H, MCHC 34.4, RDW Coeff of Chidi 12.2, Plt Count 160, Immature Gran % (Auto) 0.3, Neut % (Auto) 65.5, Lymph % (Auto) 23.4, [place] % (Auto) 7.2, Eos % (Auto) 3.4, Baso % (Auto) 0.2, Immature Gran # (Auto) 0.0, Neut # (Auto) 4.1, Lymph # ( Auto) 1.5, [place] # (Auto) 0.5, Eos # (Auto) 0.2, Baso # (Auto) 0.0 ASSESSMENT: 1. ACUTE CELLULITIS LEFT LOWER EXTREMITY 2. BILATERAL CHRONIC LEG EDEMA 3. BPH 4. HYPERTENSION 5. 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 X-ray left foot and ankle. 2. Extra 5 mg of Coumadin today. 3. Continue IV antibiotics. Plan and coordination of the patient's care discussed in the presence of Classification Case Manager and nurse. CONDITION: Stable SCRIBED BY: NINA RIVERA Active Directory Administrator scribed while in presence of service performed by Dr. Ann/Kathi Reardon APRN on 04/01/18 ([id number])
--- NOTE | 2018-04-01 11:41 | PN ---
DATE OF SERVICE: 03/29/18 SUBJECTIVE: 87-year-old white male hospitalized with left leg swelling and redness. He was seen and examined in the emergency room by ER attending, Dr. Bowman. The patient 's condition started the night prior to hospitalization. The patient was diagnosed to have cellulitis. The patient also has swelling of the penis and inguinal area, more like a fungal infection. PHYSICAL EXAMINATION: VITAL SIGNS: Temperature 99.6, pulse 92, respiratory rate 24, BP 100/63, pulse ox 91%. HEENT: Head normocephalic, atraumatic. Eyes: Extraocular muscles are intact. Pupils are equal, round and reactive to light and accommodation. Ears: No lesions. Nose appeared normal. Throat: No exudate or erythema. NECK: Supple. No JVD, no carotid bruit. No lymphadenopathy or thyromegaly. LUNGS: Decreased breath sounds but clear to auscultation. Percussion note normal. Chest symmetrical. HEART: S1, S2, no S3. No murmurs. No cyanosis or clubbing. No ascites. Pulses: Dorsalis pedis and posterior tibial pulses +1 to +2 both sides. ABDOMEN: Soft. Nontender. Bowel sounds active. No CVA tenderness. No mass felt. EXTREMITIES: Left extremity has mild redness, splotchy the lower half with some raised area. No red streaks noted. Full range of motion of all extremities, equal. NEUROLOGIC: No focal deficit. Cranial nerves II through XII are grossly intact. No headache, no double vision or headache. SKIN: Not dry. Intact. Turgor - normal. LYMPHATIC: No palpable lymph nodes/no lymphedema. MUSCULOSKELETAL: Normal joints with no swelling. Muscle tone is normal. LABS: Hemoglobin 14.2, hematocrit 40, WBC 10,000, normal shift to the left. Potassium 3.8. Creatinine 0.8, BUN 21. Liver profile negative. Lactic acid 1.73. ASSESSMENT: 1. CELLULITIS OF LEFT LOWER EXTREMITY. PLAN: 1. Treat patient with Cefazolin and Vancomycin. 2. Monitor telemetry. 3. Continue Levothyroxine, Metoprolol, Simvastatin. CONDITION: Stable. TIME SPENT: More than 30 minutes. Plan and coordination of the patient's care discussed in the presence of nurse. CHARITY
--- NOTE | 2018-04-01 14:20 | PN ---
DATE OF SERVICE: 03/30/18 SUBJECTIVE: The patient is hospitalized with left leg cellulitis. The patient's condition has improved some. Will continue to elevate the legs and antibiotics. Venous scan to be done today. The patient was seen and examined by the nurse practitioner. TIME SPENT: More than 30 minutes. Plan and coordination of the patient's care discussed in the presence of nurse. CHARITY
[2018-04-01] MEDS: COUMADIN PO SCH (16:44)
[2018-04-01] MEDS ORDERED: COUMADIN PO SCH (17:00)
[2018-04-01] MEDS: NYSTATIN CREAM TP SCH (20:32)
[2018-04-02] MEDS: SYNTHROID PO SCH (05:57)
[2018-04-02] MEDS: LASIX TAB PO SCH (05:57)
[2018-04-02] MEDS: ANCEF 1 GM in SODIUM CHLORIDE 100 ML IV SCH ×3 (05:58→20:12)
[2018-04-02] MEDS: VANCOMYCIN 1 GM in SODIUM CHLORIDE 250 ML IV SCH ×2 (09:12→21:26)
[2018-04-02] MEDS: ZOCOR PO SCH (09:12)
[2018-04-02] MEDS: FLOMAX PO SCH (09:12)
[2018-04-02] MEDS: SINEMET 25-100 PO SCH ×2 (09:12→20:14)
[2018-04-02] MEDS: LOPRESSOR PO SCH ×2 (09:12→20:14)
[2018-04-02] MEDS: NYSTATIN CREAM TP SCH ×2 (09:13→20:15)
[2018-04-02] MEDS: NYSTOP POWDER TP SCH ×2 (09:13→20:14)
[2018-04-02] MEDS: LOTRISONE 45 GM TP SCH (09:13)
[2018-04-02] MEDS ORDERED: LASIX IVP STA (09:31)
--- NOTE | 2018-04-02 11:06 | PCM.PROG ---
Attending Provider: ATTENDING PROVIDER: Dr. SARIKA ANN DATE OF SERVICE: 04/02/18 SUBJECTIVE: This 87 year old WHITE/ M was hospitalized 03/29/18 with left leg cellulitis. Cellulitis has improved remarkably from yesterday with less redness , puckering of the skin on the ankle, foot and alcaraz area. No drainage. The patient is afebrile. WBC count is normal. REVIEW OF SYSTEMS: CONSTITUTIONAL: No night sweats. No fatigue, malaise, lethargy. No fever or chills. HEENT: Eyes: No visual changes. No eye pain. No eye discharge. ENT: No runny nose. No epistaxis. No sinus pain. No odynophagia. No congestion. RESPIRATORY: No cough, no congestion. No hemoptysis. No shortness of breath. CARDIOVASCULAR: No angina symptoms. No CHF symptoms. No atypical chest pain for CAD. No palpitations. No orthopnea.. GASTROINTESTINAL: No abdominal pain. No nausea or vomiting. No diarrhea or constipation. No hematemesis. No hematochezia. GENITOURINARY: No urgency. No frequency. No dysuria. No hematuria. No obstructive symptoms. No discharge. No pain. No significant abnormal bleeding. MUSCULOSKELETAL: No musculoskeletal pain; no joint swelling. NEUROLOGICAL: Awake, alert, oriented to time, place and person. No headache. No neck pain. No syncope. No seizures. No dizziness. PSYCHIATRIC: Not anxious. No depression. No suicidal thoughts. No homicidal thoughts. SKIN: No rash. No lesions. No wounds. ENDOCRINE: No unexplained weight loss. No weight gain. HEMATOLOGIC/LYMPHATIC: No anemia. No purpura. No petechiae. No prolonged or excessive bleeding. No palpable lymph nodes. PHYSICAL EXAMINATION: GENERAL: The patient is awake, alert and oriented, lying in bed in no distress. VITAL SIGNS: Temperature 97.8 F, Pulse 68, Respiratory Rate 16, BP 127/74, Pulse Ox 96% HEENT: Head normocephalic, atraumatic. Eyes: Extraocular muscles are intact. Pupils are equal, round and reactive to light and accommodation. Ears: No lesions. Nose appeared normal. Throat: No exudate or erythema. NECK: Supple. No JVD, no carotid bruit. No lymphadenopathy or thyromegaly. LUNGS: Clear to auscultation. Percussion note normal. Chest symmetrical. HEART: S1, S2, no S3. No murmurs. No cyanosis or clubbing. No ascites. Pulses: Dorsalis pedis and posterior tibial pulses +1 to +2 both sides. ABDOMEN: Soft. Non-tender. Bowel sounds active. No CVA tenderness. No mass felt. EXTREMITIES: Left leg has less redness, no drainage. No evidence of active infection. No leg swelling. No edema. Full range of motion of all extremities , equal. NEUROLOGIC: No focal deficit. Cranial nerves II through XII are grossly intact. No headache, no double vision or headache. SKIN: Warm and dry. Intact. Turgor-normal. LYMPHATIC: No palpable lymph nodes/no lymphedema. MUSCULOSKELETAL: Normal joints with no swelling. Muscle tone is normal. LAB REVIEW: 04/02/18 04:30 04/02/18 04:30 04/02/18 04:30: Sodium 136.9 L, Potassium 3.76, Chloride 105.0, Carbon Dioxide 29.7, Anion Gap 5.96, BUN 12.2, Creatinine 0.79, Estimated GFR (MDRD) 93.00, BUN /Creatinine Ratio 15.44, Glucose 90.1, Calcium 8.52, Total Bilirubin 0.78, AST 29.8, ALT 4.5, Alkaline Phosphatase 63.7, Total Protein 5.97 L, Albumin 2.94 L, Globulin 3.03, Albumin/Globulin Ratio 0.97 04/02/18 04:30: PT 19.8 H, INR 2.02 04/02/18 04:30: WBC 4.89, RBC 3.82 L, Hgb 12.1 L, Hct 35.1 L, MCV 91.9, MCH 31.7 H, MCHC 34.5, RDW Coeff of Chidi 12.0, Plt Count 154, Immature Gran % (Auto) 0.2, Neut % (Auto) 62.4, Lymph % (Auto) 24.3, [place] % (Auto) 8.8, Eos % (Auto) 3.9, Baso % (Auto) 0.4, Immature Gran # (Auto) 0.0, Neut # (Auto) 3.1, Lymph # ( Auto) 1.2, [place] # (Auto) 0.4, Eos # (Auto) 0.2, Baso # (Auto) 0.0 04/01/18 08:30: Vancomycin Trough 10.415 ASSESSMENT: 1. Cellulitis, left leg resolving clinically. PLAN: 1. Continue antibiotics, Ancef and Vancomycin. 2. Anticipate discharge possibly tomorrow. 3. Lasix 20 mg extra today. Plan and coordination of the patient's care discussed in the presence of Tapper Shank and nurse. CONDITION: Stable SCRIBED BY: NINA RIVERA Applications Tester scribed while in presence of service performed by Dr. SARIKA ANN on 04/02/18 ([id number])
[2018-04-02] MEDS: COUMADIN PO SCH (16:33)
[2018-04-03] MEDS: ANCEF 1 GM in SODIUM CHLORIDE 100 ML IV SCH (05:34)
[2018-04-03] MEDS: LASIX TAB PO SCH (05:42)
[2018-04-03] MEDS: SYNTHROID PO SCH (05:42)
[2018-04-03] MEDS ORDERED: LASIX IVP ONE (07:00)
[2018-04-03] MEDS: ZOCOR PO SCH (08:28)
[2018-04-03] MEDS: SINEMET 25-100 PO SCH (08:29)
[2018-04-03] MEDS: NYSTOP POWDER TP SCH (08:29)
[2018-04-03] MEDS: LOPRESSOR PO SCH (08:29)
[2018-04-03] MEDS: FLOMAX PO SCH (08:29)
[2018-04-03] MEDS: VANCOMYCIN 1 GM in SODIUM CHLORIDE 250 ML IV SCH (08:29)
[2018-04-03] MEDS: NYSTATIN CREAM TP SCH (08:30)
[2018-04-03 10:26] VITALS: BP 114/75; TEMP 97.9
--- NOTE | 2018-04-03 10:48 | CM.DICTOOL ---
ADMISSION: 03/29/18 07:49 DISCHARGE: 2017 DATE OF SERVICE: 04/03/18 FINAL DIAGNOSIS CELLULITIS, LLE [place], 1985 CAD ATRIAL FIBRILLATION, INTERMITTENT PER PATIENT HYPERCHOLESTEROLEMIA BPH OSTEOARTHRITIS PARKINSON'S HYPOTHYROID STENT APPLICATION, 1985 AND 1987 PARTIAL THYROIDECTOMY BILATERAL TKR CATARACT EXTRACTION FORMER SMOKER LAST VITALS Temp Pulse Resp BP Pulse Ox 98.1 F 68 18 125/76 96 04/03/18 05:40 04/03/18 05:40 04/03/18 05:40 04/03/18 05:40 04/03/18 05:40 TAKE THESE MEDICATIONS AT HOME Carbidopa/Levodopa (Sinemet 25-100) 3 tab PO BID [facility] Last Admin: 04/03/18 08:29 Dose: 3 tab Furosemide (Lasix Tab) 40 mg PO QDAC [facility] Last Admin: 04/03/18 05:42 Dose: 40 mg Levothyroxine Sodium (Synthroid) 100 mcg PO QDAC [facility] Last Admin: 04/03/18 05:42 Dose: 100 mcg Metoprolol Tartrate (Lopressor) 25 mg PO BID [facility] Last Admin: 04/03/18 08:29 Dose: 25 mg Non-Formulary Medication (Vit C/E/Zn/Coppr/Lutein/Zeaxan [Preservision Areds 2 Softgel]) 1 cap PO BID [facility] Last Admin: 04/02/18 20:15 Dose: Not Given Simvastatin (Zocor) 10 mg PO DAILY [facility] Last Admin: 04/03/18 08:28 Dose: 10 mg Tamsulosin HCl (Flomax) 0.4 mg PO DAILY [facility] Last Admin: 04/03/18 08:29 Dose: 0.4 mg Warfarin Sodium (Coumadin) 2 mg PO [place]@1700 [facility] Last Admin: 03/29/18 16:56 Dose: 2 mg Warfarin Sodium (Coumadin) 5 mg PO MoTuWeThFrSa@1700 [facility] Last Admin: 04/02/18 16:33 Dose: 5 mg Omnicef 300 mg PO BID Last Admin: ALLERGIES No Known Allergies Allergy (Unverified 03/29/18 06:37) DISCONTINUED MEDICATIONS None NEW PRESCRIPTIONS: Omnicef 300 mg BID for 7 days Flomax 0.4 mg daily SMOKING: Not Applicable DISEASE SPECIFIC EDUCATION: Cellulitis Medications Elevate legs Appointment LAB REVIEW: 04/03/18 04:45 04/03/18 04:45 04/03/18 04:45: Sodium 136.6 L, Potassium 3.55, Chloride 103.3, Carbon Dioxide 31.4 H, Anion Gap 5.45, BUN 11.2, Creatinine 0.82, Estimated GFR (MDRD) 89.00, BUN/Creatinine Ratio 13.65, Glucose 85.5, Calcium 8.58, Total Bilirubin 0.62, AST 38.7, ALT 5.5, Alkaline Phosphatase 68.1, Total Protein 6.18 L, Albumin 3.08 L, Globulin 3.10, Albumin/Globulin Ratio 0.99 04/03/18 04:45: PT 25.1 H D, INR 2.58 04/03/18 04:45: WBC 4.87, RBC 3.89 L, Hgb 12.3 L, Hct 35.7 L, MCV 91.8, MCH 31.6 H, MCHC 34.5, RDW Coeff of Chidi 12.1, Plt Count 172, Immature Gran % (Auto) 0.2, Neut % (Auto) 51.9, Lymph % (Auto) 29.4, [place] % (Auto) 10.9 H, Eos % (Auto ) 7.2 H, Baso % (Auto) 0.4, Immature Gran # (Auto) 0.0, Neut # (Auto) 2.5, Lymph # (Auto) 1.4, [place] # (Auto) 0.5, Eos # (Auto) 0.4, Baso # (Auto) 0.0 PLAN: DISCHARGE TO [facility] DIET: REGULAR TOLERATED ACTIVITY: RESUME TOLERATED USE WALKER FOR ADDED STABILITY WITH WALKING ELEVATE LEGS WHEN SITTING IN THE CHAIR AND WHEN IN BED MOISTURIZE THE SKIN TO THE LOWER LEGS AT LEAST DAILY AN APPOINTMENT IS SCHEDULED WITH DR. ANN/CLOVIS GREENBERG APRN ON APRIL 07 AT 9:30 AM CODE STATUS: FULL CODE PER PATIENT MR. CONCEPCION IS ALERT TO PERSON AND PLACE. HE IS FORGETFUL AT TIMES, BUT IS COOPERATIVE. HE IS INDEPENDENT WITH FEEDING, TOILETING AND BED MOBILITY. HE REQUIRES CONTACT [employer] WITH TRANSFERS AND AMBULATION. HE HAS BEEN USING A ROLLING WALKER DURING HIS HOSPITAL STAY FOR INCREASED STABILITY. A ROLLING WALKER WAS OBTAINED FOR THE PATIENT FROM [facility] FOR HIS USE AT HOME. THE PATIENT AND WERE SHARING A WALKER PRIOR TO HIS ADMISSION. MR. CONCEPCION IS CONTINENT OF BOWEL AND BLADDER. MEAL INTAKES ARE GOOD AT 50-100%. THE SKIN TURGOR IS GOOD. DECREASED ERYTHEMA AND EDEMA NOTED TO THE LEFT LEG. THE SKIN IS INTACT, BUT IS DRY/FLAKY TO THE LEFT UP. NO OPEN AREAS OR BRUISING NOTED TO THE LEFT LEG. SARIKA ANN MD CLOVIS GREENBERG APRN
--- NOTE | 2018-04-03 13:17 | RS.OTQKDC ---
OT Discharge Date of Discharge: 04/03/18 Reason for Discharge: Pt discharging to home with a RW and 5 inch wheels.
--- NOTE | 2018-04-03 14:55 | DS ---
DATE OF SERVICE: 04/03/19 FINAL DIAGNOSIS: CELLULITIS, LLE [place], 1985 CAD ATRIAL FIBRILLATION, INTERMITTENT PER PATIENT HYPERCHOLESTEROLEMIA BPH OSTEOARTHRITIS PARKINSON'S HYPOTHYROID STENT APPLICATION, 1985 AND 1987 PARTIAL THYROIDECTOMY BILATERAL TKR CATARACT EXTRACTION CODE STATUS: FULL CODE PER PATIENT DISCHARGE INSTRUCTIONS: AN APPOINTMENT IS SCHEDULED WITH DR. ANN/CLOVIS GREENBERG APRN ON APRIL 07 AT 9:30 AM MEDICATIONS AT DISCHARGE: Carbidopa/Levodopa (Sinemet 25-100) 3 tab PO BID [facility] Last Admin: 04/03/18 08:29 Dose: 3 tab Furosemide (Lasix Tab) 40 mg PO QDAC [facility] Last Admin: 04/03/18 05:42 Dose: 40 mg Levothyroxine Sodium (Synthroid) 100 mcg PO QDAC [facility] Last Admin: 04/03/18 05:42 Dose: 100 mcg Metoprolol Tartrate (Lopressor) 25 mg PO BID [facility] Last Admin: 04/03/18 08:29 Dose: 25 mg Non-Formulary Medication (Vit C/E/Zn/Coppr/Lutein/Zeaxan [Preservision Areds 2 Softgel]) 1 cap PO BID [facility] Last Admin: 04/02/18 20:15 Dose: Not Given Simvastatin (Zocor) 10 mg PO DAILY [facility] Last Admin: 04/03/18 08:28 Dose: 10 mg Tamsulosin HCl (Flomax) 0.4 mg PO DAILY [facility] Last Admin: 04/03/18 08:29 Dose: 0.4 mg Warfarin Sodium (Coumadin) 2 mg PO [place]@1700 [facility] Last Admin: 03/29/18 16:56 Dose: 2 mg Warfarin Sodium (Coumadin) 5 mg PO MoTuWeThFrSa@1700 [facility] Last Admin: 04/02/18 16:33 Dose: 5 mg Omnicef 300 mg PO BID Last Admin: NEW PRESCRIPTIONS: Omnicef 300 mg BID for 7 days Flomax 0.4 mg daily DIET INSTRUCTIONS: Regular as tolerated ACTIVITY: Resume as tolerated SMOKING: Not applicable DISEASE SPECIFIC EDUCATION: Cellulitis Medications Elevate legs Appointment HOSPITAL COURSE: This is a white male who presented to the emergency room. He has just become a new patient and was seen in our office for the first time approximately three weeks ago. He moved down here with his and they live in assisted living facility as his daughter lives down here to be closer to her. He does have a history of chronic leg edema and is sometimes noncompliant with taking his Lasix at home because he doesn't want to have to urinate. He presented to the emergency room with low grade fever, redness, and swelling in the left lower extremity. He was admitted and placed on IV Ancef as well as Vancomycin. Venous scan was done which was negative showing no indication of clot. He is on ferry terminal agent Coumadin therapy due to history of atrial fibrillation. He was on telemetry while here and his rate remained controlled. He did go in and out of a fib some. Over the course of several days with his leg elevated the redness slowly improved. On the third day, the swelling had not significantly improved so x-rays were done which showed no fracture. He reported that he had not had a fall but we did x-rays to confirm which showed cellulitis and subcutaneous edema extensive in the left lower extremity. For the past two days he was given Lasix IV 40 mg yesterday as well as today. This has helped significantly with the leg edema on the left side. He did complain on the second day that he was urinating every 15 minutes only small amounts so he was started on Flomax 0.4 mg and his symptoms seemed to resolve except for frequent urination associated with diuretic therapy. His vital signs and labs have all been stable. Today he is going to be discharged in stable condition. He had previously used a walker at home (it was his 's) but he showed benefit with use from a rolling walker after evaluation by PT, so we will give him an order for a rolling walker to be used at the assisted living facility . He is going to be discharged in stable condition. White count is normal 4.87 with Omnicef 300 mg BID for the next seven days as well as a new prescription of Flomax 0.4 mg daily. He is instructed to take his Lasix 40 mg daily as prescribed. His INR has remained within normal limits. He is going to continue on his regular regimen of 5m of Coumadin on Friday, Friday, Friday, , Friday, Friday and 2 mg on Friday. We will give him the prescription for the rolling walker. Again, the redness has significantly improved. He is to keep his leg elevated while at home. We will follow up with him at the office next week. SPECIFIC ORDERS: DISCHARGE TO [facility] USE WALKER FOR ADDED STABILITY WITH WALKING ELEVATE LEGS WHEN SITTING IN THE CHAIR AND WHEN IN BED MOISTURIZE THE SKIN TO THE LOWER LEGS AT LEAST DAILY TIME SPENT: More than 60 minutes. MTDD
== END 2018-04-03 13:27 | disposition home or self-care (01) | DRG 310 ==
LOC: ED 06:09 → MEDSURG A 07:49
PROVIDERS: ADMIT Internal Medicine; ATTEND Internal Medicine
DX: I48.91 Unspecified atrial fibrillation (principal); I10 Essential (primary) hypertension; I25.10 Atherosclerotic heart disease of native coronary artery without angina pectoris; E78.5 Hyperlipidemia, unspecified; E78.00 Pure hypercholesterolemia, unspecified; E03.9 Hypothyroidism, unspecified; N40.0 Benign prostatic hyperplasia without lower urinary tract symptoms; M19.90 Unspecified osteoarthritis, unspecified site; G20 Parkinson's disease; Z79.01 Long term (current) use of anticoagulants
CPT/HCPCS: 36415; 80053; 80202; 81001; 83605; 84145; 85025; 85610; 87040; 87081; 93005; 93010; 96365; 96366; 99284

== ENCOUNTER 2018-04-15 11:08 | Outpatient (CLI) | payer OTHER | END 2018-04-15 11:09 | disposition home or self-care (01) | LOC: WOUND 11:08 | PROVIDERS: ATTEND Nurse Practitioner Family | DX: L03.116 Cellulitis of left lower limb (principal); G20 Parkinson's disease; E03.9 Hypothyroidism, unspecified | CPT/HCPCS: 99202; 99204 ==

== ENCOUNTER 2018-04-22 10:45 | Outpatient (CLI) | payer OTHER | END 2018-04-22 10:46 | disposition home or self-care (01) | LOC: WOUND 10:45 | PROVIDERS: ATTEND Nurse Practitioner Family | DX: L03.116 Cellulitis of left lower limb (principal); G20 Parkinson's disease; E03.9 Hypothyroidism, unspecified | CPT/HCPCS: 99213 ==

== ENCOUNTER 2018-05-04 06:42 | Outpatient (CLI) | payer OTHER | END 2018-05-04 06:43 | disposition home or self-care (01) | LOC: CAR 06:42 | PROVIDERS: ATTEND Internal Medicine | DX: R06.02 Shortness of breath (principal); I48.91 Unspecified atrial fibrillation ==